=== PATIENT | male | born 1965 | race Two or more races ===

== ENCOUNTER 2019-02-27 17:29 | Inpatient (IN) | payer SELFPAY ==
[~2019-02-27] VITALS: Ht 170.2 cm; Wt 90.2 kg
--- NOTE | ~2019-02-27 | HEMODYNAMI ---
PATIENT:JONE OCHOA MEDICAL RECORD: [id number] : 69 LOCATION:[facility] D213 ADMISSION DATE: 02/27/19 Generatedon:02/28/201915:24 Patient name: JONE OCHOA Patient #: [id number] SSN: [id number] : 1965 Date of study: 02/28/2019 Page: Of Hemodynamic Procedure Report Patient Data Patient Demographics Procedure consent was obtained First Name: JONE Gender: Male Last Name: GABRIELA : 1965 Patient #: [id number] Age: 54 year(s) Race: Other SSN: [id number] Ethnicity: or Additional ID: [id number] Contact details [address]: [address] [place] [address] State: [place] City: [place] Zip code: [address] Past Medical History Allergies: No known allergies Admission Admission Data Admission Date: 02/27/2019 Admission Time: 20:04 Room #: D2133 Lab Results Lab Result Date: 02/28/2019 Lab Result Time: 0:00 Biochemistry Name Units Result Min Max BUN mg/dl 16 --(---*)-- 7 18 Creatinine mg/dl 1 --(--*-)-- 0.6 1.3 eGFR ml/min 82.59836 -*(----)-- 90 120 NONAFRICAN CBC Name Units Result Min Max Hematocrit % 43.4 --(*---)-- 42 54 Hemoglobin g/dl 15.5 --(-*--)-- 13.5 17.5 Procedure Procedure Types Cath Procedure Diagnostic Procedure C [facility] w/Coronaries Sedation Charges Moderate Sedation up to 15 minutes Procedure Description Procedure Date Procedure Date: 02/28/2019 Procedure Start Time: 14:50 Procedure End Time: 15:22 Procedure Staff Name Function Janusz Ramirez MD Performing Physician Elizabeth Galo RT Monitor Latrice Reynolds RT Scrub Yolanda Alarcon RN Nurse Procedure Data Cath Procedure Fluoroscopy Diagnostic fluoroscopy Total fluoroscopy Time: 6.1 time: 6.1 min min Diagnostic fluoroscopy Total fluoroscopy dose: 614 dose: 614 mGy mGy Contrast Material Contrast Material Type Amount (ml) Isovue 300 65 Entry Location Entry Primary Successful Side Size Upsize Upsize Entry Closure Silva ccessful Closure Location (Fr) 1 (Fr) 2 (Fr) Remarks Device Remarks Radial Right 6 Fr Mechanical artery Short Compression Femoral Right 5 Fr Exoseal artery Estimated blood loss: 5 ml Diagnostic catheters Device Type Used For End Catheter Placement DIAGNOSTIC Auberry 110cm 5 Procedure Fr catheter ([id number]) MULTIPACK JL 4.0 5Fr Procedure catheter MULTIPACK 3DRC 5Fr Procedure catheter MULTIPACK Pigtail 5 Fr Procedure catheter Procedure Complications No complications Procedure Medications Medication Administration Route Dosage Oxygen etCO2 Nasal cannula 2 l/min Lidocaine 2% added to field 20 Heparin Flush Bag added to field 2 bags (1000units/500ml NS) 0.9% NaCl I.V. 100 ml/hr Versed I.V. 2 mg Fentanyl I.V. 100 mcg Radial Cocktail added to field 1 syringe (Verapamil 2mg/Nitro 400mcg/Heparin 1500units) Versed I.V. 2 mg Fentanyl I.V. 100 mcg Solumedrol I.V. 125 mg Hemodynamics Rest HGB: 15.5 (g/dl) Heart Rate: 67 (bpm) Pressure Samples Time Site Value (mmHg) Purpose Heart Use Rate(bpm) 15:09 LV 86/0,4 Snapshot 69 15:09 AO 117/36(61) Pullback 58 Gradients Valve Time Site Site 2 Mean SEP/DFP Peak To Heart Use 1 (mmHg) (sec/min) Peak Rate (mmHg) (bpm) Aortic 15:09 LV AO 36 24 58 117/36(61) Calculations Valve P-P Mean Valve Index Valve Source Name Gradient Area Flow (cm2) Aortic 36 36 Snapshots Pre Cath Intra NCS Post Cath Vital Signs Time Heart Resp SPO2 etCO2 NIBP Rhythm Pain Sedation Rate (ipm) (%) (mmHg) (mmHg) Status Level (bpm) 14:27:48 61 16 96 0 125/61(78) NSR 0 (11) 10(A) , No pain 14:32:02 70 16 94 27 108/62(83) NSR 0 (11) 10(A) , No pain 14:36:12 55 15 94 26.2 124/54(79) NSR 0 (11) 10(A) , No pain 14:40:26 60 14 96 30.7 109/59(76) NSR 0 (11) 10(A) , No pain 14:44:34 59 10 96 30 110/59(76) NSR 0 (11) 10(A) , No pain 14:48:44 59 11 95 34.5 109/54(76) NSR 0 (11) 10(A) , No pain 14:52:56 57 19 97 0 99/48(80) NSR 0 (11) 10(A) , No pain 14:57:02 61 10 94 43.5 95/53(72) NSR 0 (11) 9(A) , No pain 15:01:07 69 17 95 35.2 100/52(66) NSR 0 (11) 9(A) , No pain 15:05:11 72 10 94 44.2 105/59(81) NSR 0 (11) 9(A) , No pain 15:09:17 67 15 93 38.3 105/58(85) NSR 0 (11) 10(A) , No pain 15:13:25 68 10 94 37.5 102/54(81) NSR 0 (11) 10(A) , No pain Medications Time Medication Route Dose Verified Delivered Reason Notes Effectiveness by by 14:32:43 Oxygen etCO2 2 l/min Janusz Guerrero used for Nasal St Sohail Alarcon RN procedure cannula 14:32:49 Lidocaine 2% added 20ml Janusz Boudreaux for local to vial [facility] anesthetic field MD PANTOJA 14:32:57 Heparin Flush added 2 bags Janusz Boudreaux used for Bag to [facility] procedure (1000units/500ml field MD PANTOJA NS) 14:33:05 0.9% NaCl I.V. 100 Janusz Guerrero Per ml/hr St Sohail Alarcon RN physician 14:49:49 Versed I.V. 2 mg Januzs Guerrero for sedation St Sohail Alarcon RN, MD 14:49:58 Fentanyl I.V. 100 mcg Janusz Guerrero for sedation St Sohail Alarcon RN, MD 14:52:34 Radial Cocktail added 1 Janusz Boudreaux for (Verapamil to syringe [facility] vasodilation 2mg/Nitro field MD PANTOJA 400mcg/Heparin 1500units) 15:04:43 Versed I.V. 2 mg Janusz Boudreaux for sedation St Sohail Ramirez MD, MD 15:04:48 Fentanyl I.V. 100 mcg Janusz Boudreaux for sedation St Sohail Ramirez MD, MD 15:09:51 Solumedrol I.V. 125 mg Janusz Guerrero Per St Sohail Alarcon RN physician Procedure Log Time Note 13:47:43 Informed consent obtained and on chart 13:48:22 Procedure Status Urgent Heart Cath (IP). 13:48:28 Plan of Care:Hemodynamics will remain stable., Cardiac rhythm will remain stable., Comfort level will be maintained., Respiratory function will remain adequate., Patient/ family verbilizes understanding of procedure., Procedure tolerated without complication., Recovers from procedure without complications.. 13:48:30 Time tracking: Regular hours (M-F 7:00 - 5:00) 13:49:49 H&P Date Dictated: 02/27/2019 Within 30 days and on chart.. 13:50:03 Patient allergic to No known allergies 13:51:00 Lab Result : BUN 16 mg/dl 13:51:00 Lab Result : Creatinine 1 mg/dl 13:51:00 Lab Result : eGFR NONAFRICAN 82.11537 ml/min 13:51:00 Lab Result : Hemoglobin 15.5 g/dl 13:51:00 Lab Result : Hematocrit 43.4 % 13:52:50 Stress Test: no; N/A ? 13:58:36 Risk of Mortality: .1 13:58:38 Risk of blood transfusion: .1 13:58:40 Risk of GINA: .1 14:04:03 Elizabeth Galo RT(R) sent for patient. Start room use. 14:26:39 Patient received from Med II to CCL 1 Alert and oriented. Tansferred to table in Supine position. 14:26:40 Warm blankets applied, and alok hugger turned on for patient comfort. 14:26:40 Correct patient and procedure confirmed by team. 14:26:41 ECG and BP/O2 sat monitors applied to patient. 14:26:41 Vital chart was started 14:26:42 Baseline sample Acquired. 14:26:47 Rhythm: sinus rhythm 14:26:48 Full Disclosure recording started 14::49 Pre-procedure instructions explained to patient. 14:26:49 Pre-op teaching completed and patient verbalized understanding. 14:26:51 Family in patients room. 14:26:52 Patient NPO since Midnight. 14:26:54 Is the patient allergic to Iodine/contrast media? No. 14:26:56 Is patient on blood thinner?No 14:26:59 Patient diabetic? Yes. 14:27:02 If diabetic: On Metformin? Unknown 14:27:21 Previous problem with sedation/anesthesia? No ? 14:27:23 Snore? Yes 14:27:24 Sleep apnea? No 14:27:26 Deviated septum? No 14:27:26 Opens mouth fully? Yes 14:27:29 Sticks out tongue? Yes 14:27:30 Airway obstruction? No ? 14:27:42 Pre procedure: right dorsailis pedis pulse 1+ Palpable, but thready & weak; easily obliterated 14:27:44 Modified Hank's test Ulnar < 7 seconds 14:27:47 Patient pain scale 0/10 ?. 14:28:06 IV patent on arrival in right antecubital with 0.9% NaCl at [facility]. 14:28:10 Lab results completed and on chart. 14:28:16 Right Radial & Right Groin area was prepped with chlora-prep and draped in sterile fashion 14:28:17 Alarms reviewed by R. N. 14:28:17 Sharps counted by scrub and verified by R.N. 14:28:19 Use device set Radial Dx or PCI 14:28:20 ACIST Syringe (44971) opened to sterile field. 14:28:21 Bag Decanter () opened to sterile field. 14:28:22 ACIST Hand Control (32294) opened to sterile field. 14:28:22 ACIST Manifold (16186) opened to sterile field. 14:28:24 Tegaderm 4 x 4 (1626W) opened to sterile field. 14:28:25 Medline Cath Pack ([id number]) opened to sterile field. 14:28:26 MBrace Wrist Support ([id number]) opened to sterile field. 14:28:27 EMERALD Guide Wire (335-293) opened to sterile field. 14:28:28 SHEATH 6FR RAIN ([id number]) opened to sterile field. 14:32:43 Oxygen 2 l/min etCO2 Nasal cannula was administered by Yolanda Alarcon RN; used for procedure; Verbal order read back and verified. 14:32:49 Lidocaine 2% 20ml vial added to field was administered by Janusz Ramirez MD; for local anesthetic; Verbal order read back and verified. 14:32:57 Heparin Flush Bag (1000units/500ml NS) 2 bags added to field was administered by Janusz Ramirez MD; used for procedure; Verbal order read back and verified. 14:33:05 0.9% NaCl 100 ml/hr I.V. was administered by Yolanda Alarcon RN; Per physician; Verbal order read back and verified. 14:36:46 Zero performed for pressure channel P1 14:48:07 --------ALL STOP TIME OUT------ 14:48:07 Final Timeout: patient, procedure, and site verified with staff and physician. All members of the team are in agreement. 14:48:09 Right Radial & Right Groin site verified by team. 14:48:11 Fire Safety Assessment: A--An alcohol-based skin anteseptic being used preoperatively., C--Open oxygen or nitrous oxide is being used., D--An ESU, laser, or fiber-optic light is being used. 14:48:14 Physical assessment completed. ASA score P 2 - A patient with mild systemic disease as per Janusz Ramirez MD. 14:48:17 2) 60-89 Mildly reduced kidney function, and other findings (as for stage 1) point to kidney disease. 14:48:20 Maximum allowable contrast dose (3.7 X eGFR X 0.75)250 ml. 14:48:23 Sedation plan: IV Moderate Sedation Medication:Versed, Fentanyl 14:49:49 Versed 2 mg I.V. was administered by Yolanda Alarcon RN; for sedation; Verbal order read back and verified. 14:49:58 Fentanyl 100 mcg I.V. was administered by Yolanda Alarcon RN; for sedation; Verbal order read back and verified. 14:50:12 Procedure started. 14:50:25 Local anesthetic to right radial artery with Lidocaine 2% by Janusz Ramirez MD.INITIAL ACCESS ONLY 14:52:34 Radial Cocktail (Verapamil 2mg/Nitro 400mcg/Heparin 1500units) 1 syringe added to field was administered by Janusz Ramirez MD; for vasodilation; Verbal order read back and verified. 14:54:21 A 6 Fr Short sheath was inserted into the Right Radial artery 14:54:40 A DIAGNOSTIC Auberry 110cm 5 Fr catheter ([id number]) was advanced over the wire and used for Procedure. 14:56:48 GLIDE WIRE ANGLE 260cm ([id number]) opened to sterile field. 14:57:06 GLIDE WIRE ANGLED ADVNACED . 14:58:35 UNABLE TO ADVANCE WIRE AROUND AORTA. WILL PROCEED TO THE GROIN.. 14:59:00 Local anesthetic to right femoral artery with Lidocaine 2% by Janusz Ramirez MD.ADDITIONAL ACCESS 14:59:13 SHEATH 5FR [place] (ZGN528) opened to sterile field. 14:59:29 Use device set Multipack Set 14:59:30 DIAGNOSTIC Multipack 5Fr catheter set ([id number]) opened to sterile field. 15:00:32 A 5 Fr sheath was inserted into the Right Femoral artery 15:00:39 A MULTIPACK JL 4.0 5Fr catheter was advanced over the wire and used for Procedure. 15:01:39 LCA angiography performed. 15:01:41 Catheter removed. 15:01:46 A MULTIPACK 3DRC 5Fr catheter was advanced over the wire and used for Procedure. 15:03:59 GLIDE WIRE ANGLE 260cm ([id number]) opened to sterile field. 15:04:09 GLIDE WIRE USED TO ADNAVCE 3DRC. 15:04:43 Versed 2 mg I.V. was administered by Janusz Ramirez MD; for sedation; Verbal order read back and verified. 15:04:48 Fentanyl 100 mcg I.V. was administered by Janusz Ramirez MD; for sedation; Verbal order read back and verified. 15:07:07 RCA angiography performed. 15:07:10 Catheter exchanged over wire. 15:07:27 A MULTIPACK Pigtail 5 Fr catheter was advanced over the wire and used for Procedure. 15:07:38 LV gram done using CHERYL 15::41 Injector settings: Ml/sec: 10, Volume: 20, 15:09:09 LV hemodynamics recorded. 15:09:22 EF : 55 % 15:09:23 Catheter removed. 15:09:44 EXOSEAL 5Fr (EX500) opened to sterile field. 15:09:46 ZEPHYR REGULAR TR BAND (633557) opened to sterile field. 15:09:51 Solumedrol 125 mg I.V. was administered by Yolanda Alarcon RN; Per physician; Verbal order read back and verified. 15:10:04 Sheath removed intact; hemostasis achieved with Exoseal to the Right Femoral artery. 15:10:23 Procedure ended.(Physican Out) 15:10:45 Sheath removed intact; hemostasis achieved with Mechanical Compression to the Right Radial artery. 15:11:05 Fluoroscopy time 06.10 minutes. 15:11:10 Fluoroscopy dose: 614 mGy 15:11:10 Flurop Dose total: 614 15:11: Dose Area Product 09528 mGy/cm. 15:11:27 Contrast amount:Isovue 300 65ml. 15:11:30 Maximum allowable dose exceeded? No. 15:11:31 Sharps counted by scrub and verified by R.N. 15:11:36 Post-op/insertion site Right Femoral artery dressed using a 4 x 4 and Tegaderm. 15:12:14 Post-procedure physical assessment completed. ASA score P 2 - A patient with mild systemic disease as per Janusz Ramirez MD. 15:12:17 Post procedure rhythm: sinus rhythm 15:12:20 Estimated blood loss: 5 ml 15:12:21 Post procedure instruction explained to patient.Patient verbalizes understanding. 15:12:22 Patient needs reinforcement of post procedure teaching. 15:12:42 Procedure type changed to Cath procedure, Diagnostic procedure, LHC, [facility] w/Coronaries, Sedation Charges, Moderate Sedation up to 15 minutes 15:13:07 Procedure and supply charges have been captured, reviewed, submitted and are correct. 15:13:12 Procedure Complication : No complications 15:14:14 Vital chart was stopped 15:14:16 [facility] Findings: mild to moderate CAD (<70%) 15:14:17 Operative report dictated upon procedure completion. 15:14:17 See physician's report for complete and final results. 15:22:45 Catherine band inflated with 9cc of air. 15:22:50 Report given to [facility]. 15:22:52 Patient transfered to [facility] with Bed. 15:22:54 Procedure ended. 15:22:54 Full Disclosure recording stopped 15:23:00 End room use (Document Last) 15:23:16 End room use (Document Last) 15:23:46 End room use (Document Last) Device Usage Item Name Manufacture Quantity Catalog Hospital Part Current Minima l Lot# / Number Charge Number Stock Stock Serial# Code ACGEORGE Acist 1 99000 944424 355767 155874 20 Syringe Medical (87993) Systems Inc Bag Microtek 1 2001S 948158 65872 433698 5 Decanter Medical Inc. () ACIST Hand Acist 1 99277 610482 404270 338475 5 Control Medical (19576) Systems Inc ACIST Acist 1 91417 150168 080050 040531 5 Manifold Medical (25765) Systems Inc Tegaderm 4 3M 1 1626W 454388 926776 283976 5 x 4 (1626W) Medline Medline 1 [id number] 429387 72659 138429 5 Cath Pack ([id number]) MBrace Advanced 1 140-0250-00 776804 39735 560312 5 Wrist Vascular Support Dynamics ([id number]) EMERALD Cardinal 1 502-455 654679 144409 836748 5 Guide Wire Health (502-455) SHEATH 6FR Cardinal 1 5564235 248346 2426582 171582 5 [facility] (5729076) DIAGNOSTIC Terumo 1 40-8443 345676 643680 875129 5 Auberry 110cm 5 Fr catheter (384761) GLIDE WIRE Terumo 2 DF8192 767435 649759 266217 5 ANGLE 260cm (NJ1229) SHEATH 5FR Terumo 1 WFN826 014296 923338 383263 5 [place] (VDM734) DIAGNOSTIC Cardinal 1 JN5071 059085 63800 263744 30 Multipack Health 5Fr catheter set (NQ1786) MULTIPACK Cardinal 1 919965 5 JL 4.0 5Fr Health catheter MULTIPACK Cardinal 1 755692 5 3DRC 5Fr Health catheter MULTIPACK Cardinal 1 488465 5 Pigtail 5 Health Fr catheter EXOSEAL 5Fr Cardinal 1 EX500 725996 596224 572210 10 (EX500) Health ZEPHYR Cardinal 1 254296 204824 7213720 744312 5 REGULAR TR Health BAND (495609) Signature Audit [place] Stage Time Signature Unsigned Intra-Procedure 02/28/2019 Elizabeth Galo 3:23:16 PM RT(R) Intra-Procedure 02/28/2019 Yolanda Alarcon RN 3:23:46 PM Intra-Procedure 02/28/2019 Janusz Garcia 3:24:11 PM Sohail PANTOJA [facility] [address] [place] [address]
[2019-02-27 17:45] VITALS: Ht 170.2 cm; Wt 90.2 kg
[2019-02-27] MEDS ORDERED: PRAVACHOL40 MG PO (17:49)
[2019-02-27] MEDS ORDERED: LOPRESSOR25 MG PO (17:49)
[2019-02-27] MEDS ORDERED: ASPIRIN81 MG PO (17:49)
[2019-02-27 18:11] LABS: BASOPHILS 0.4 % (0-2); EOSINOPHILS 0.1 % (0-7); HEMATOCRIT 43.4 % (42.0-54.0); HEMOGLOBIN 15.5 g/dL (13.5-17.5); IMMATURE GRANULOCYTES 0.1 % (0-5); LYMPHOCYTES 24.9 % (15-50); MCH 31.2 pg (26.0-34.0); MCHC 35.7 g/dL (31.0-37.0); MCV 87.3 fL (80.0-100.0); MEAN PLATELET VOLUME 10.4 fL (7.4-10.4); MONOCYTES 6.8 % (2-11); NEUTROPHILS 67.7 % (40-80); PLATELET COUNT 238 10x3/uL (130-400); RBC 4.97 10x6/uL (4.20-6.10); RDW 13.2 % (11.5-14.5); WBC 7.3 10x3/uL (4.8-10.8)
[2019-02-27 18:41] LABS: APTT 30.4 SECONDS (22.8-39.4); CALC OSMOLALITY 279 mosm/kg (275-300); CALCIUM 9.2 mg/dL (8.5-10.1); CARBON DIOXIDE 24.5 mmol/L (21.0-32.0); CHLORIDE - SERUM 105 mmol/L (98-107); GLUCOSE 103 mg/dL (74-106); INR 1.01 (0.85-1.17); POTASSIUM - SERUM 4.1 mmol/L (3.5-5.1); PROTIME 13.2 SECONDS (11.6-15.0); SODIUM 140 mmol/L (136-145); UREA NITROGEN 14 mg/dL (7-18); eGFR NON AFRICAN AMERICAN 83 mL/min (90-120)
[2019-02-27 18:57] LABS: ALBUMIN 3.9 g/dL (3.4-5.0); ALKALINE PHOSPHATASE 81 U/L (46-116); ALT (SGPT) 108 U/L (10-68); BILIRUBIN - TOTAL 0.36 mg/dL (0.2-1.3); CKMB 0.9 U/L (0.0-3.6); CREATINE KINASE 79 UL (21-232); PROTEIN - SERUM 8.1 g/dL (6.4-8.2); TROPONIN-I < 0.017 ng/mL (0.000-0.060)
--- NOTE | 2019-02-27 22:00 | NUR ---
PT ARRIVED TO FLOOR VIA WHEELCHAIR A/O X4. VSS. PT SATATES THAT HE'S HAD BLOOD IN STOOL AND COMPLAINS OF PAIN IN ABDOMEN. PT TELLS ME HE INGESTED WATER LACED WITH METH 2 WEEKS AND WAS UNAWARE. CECELIA MCDANIEL PAGED. PT PLACED ON TELEMETRY RUNNING AT 50 SINUS MADHURI. NO S/S OF DISTRESS AT THIS TIME. PT DENIES ANY PAIN OR FURTHER NEEDS. BED LOW CALL LIGHT WITHIN REACH. WILL CONTINUE TO MONITOR.
[2019-02-28 01:44] LABS: CKMB 0.8 U/L (0.0-3.6); CREATINE KINASE 93 UL (21-232); TROPONIN-I < 0.017 ng/mL (0.000-0.060)
[2019-02-28 04:30] VITALS: BP 97/55
[2019-02-28 05:31] LABS: BASOPHILS 0.3 % (0-2); EOSINOPHILS 1.1 % (0-7); HEMATOCRIT 40.9 % (42.0-54.0); HEMOGLOBIN 14.3 g/dL (13.5-17.5); IMMATURE GRANULOCYTES 0.3 % (0-5); LYMPHOCYTES 33.3 % (15-50); MCH 30.8 pg (26.0-34.0); MCV 88.1 fL (80.0-100.0); MEAN PLATELET VOLUME 10.8 fL (7.4-10.4); MONOCYTES 10.7 % (2-11); NEUTROPHILS 54.3 % (40-80); PLATELET COUNT 225 10x3/uL (130-400); RBC 4.64 10x6/uL (4.20-6.10); RDW 13.4 % (11.5-14.5); WBC 6.2 10x3/uL (4.8-10.8)
[2019-02-28 05:58] LABS: AMYLASE - SERUM 74 U/L (25-115); CALC OSMOLALITY 279 mosm/kg (275-300); CALCIUM 8.6 mg/dL (8.5-10.1); CARBON DIOXIDE 28.2 mmol/L (21.0-32.0); CHLORIDE - SERUM 104 mmol/L (98-107); CKMB 0.6 U/L (0.0-3.6); CREATINE KINASE 58 UL (21-232); GLUCOSE 100 mg/dL (74-106); LIPASE 302 U/L (73-393); PHOSPHOROUS 4.3 mg/dL (2.5-4.9); POTASSIUM - SERUM 4.1 mmol/L (3.5-5.1); SODIUM 140 mmol/L (136-145); TROPONIN-I < 0.017 ng/mL (0.000-0.060); UREA NITROGEN 16 mg/dL (7-18); eGFR NON AFRICAN AMERICAN 83 mL/min (90-120)
--- NOTE | 2019-02-28 06:22 | NUR ---
I have reviewed this patient and I concur with the Shift Assessment completed by the Licensed Practical Nurse today this shift.
[2019-02-28 07:44] LABS: UDS - AMPHET NEGATIVE QUAL (NEGATIVE); UDS - BARB NEGATIVE QUAL (NEGATIVE); UDS - BENZO NEGATIVE QUAL (NEGATIVE); UDS - COCAINE NEGATIVE QUAL (NEGATIVE); UDS - OPIATE NEGATIVE QUAL (NEGATIVE); UDS - PCP NEGATIVE QUAL (NEGATIVE); UDS - THC NEGATIVE QUAL (NEGATIVE)
[2019-02-28 08:32] LABS: APPEARANCE HAZY (CLEAR); BILIRUBIN NEGATIVE (NEGATIVE); COLOR YELLOW (YELLOW); GLUCOSE NEGATIVE (NEGATIVE); KETONE NEGATIVE (NEGATIVE); NITRITE NEGATIVE (NEGATIVE); PROTEIN NEGATIVE (NEGATIVE); SPECIFIC GRAVITY 1.025 (1.005-1.020); UROBILINOGEN NORMAL (NORMAL)
[2019-02-28 08:33] LABS: BACTERIA FEW /hpf (NEGATIVE); EPITHELIAL CELLS OCC /hpf (0-5); MUCUS >1+ /lpf (NONE SEEN); RED CELLS - URINE RARE /hpf (0-5); WHITE CELLS - URINE OCC /hpf (NEGATIVE)
[2019-02-28 09:17] LABS: CHOL - HDL RATIO 4.7 ratio (2.3-4.9); LDL-HDL RATIO 2.4 ratio (1.5-3.5)
[2019-02-28 10:55] VITALS: BP 120/60
[2019-02-28 12:36] LABS: CKMB 0.5 U/L (0.0-3.6); CREATINE KINASE 65 UL (21-232); TROPONIN-I < 0.017 ng/mL (0.000-0.060)
[2019-02-28 14:09] VITALS: BP 116/66
--- NOTE | 2019-02-28 15:41 | NUR ---
PT TO ROOM FROM MOVING CONSULTANT RECOVERY. DRESSING TO RIGHT GROIN IS CLEAN AND DRY. RIGHT WRIST WITH PRESSURE BRACE IN PLACE. PT IS RESTING QUIETLY AT PRESENT.
[2019-02-28 17:24] VITALS: BP 101/58
--- NOTE | 2019-02-28 19:10 | NUR ---
BEDSIDE REPORT RECEIVED FROM DAY SHIFT, PT CARE ASSUMED. INTRODUCED SELF AND WROTE NAME ON BOARD. PT LYING IN BED, VISITING WITH FAMILY AT BEDSIDE, AAOX4. REQUESTING JELLO AND WATER, PROVIDED. DENIES PAIN OR ANY OTHER NEEDS AT THIS TIME. BED IN LOWEST POSITION, SR X2, CALL LIGHT WITHIN REACH. WILL CONTINUE TO MONITOR.
[2019-02-28 20:00] VITALS: BP 132/76
[2019-03-01] VITALS: BP 116/63
[2019-03-01 04:00] VITALS: BP 104/65
[2019-03-01 06:00] LABS: BASOPHILS 0 % (0-2); EOSINOPHILS 0 % (0-7); HEMATOCRIT 39.3 % (42.0-54.0); IMMATURE GRANULOCYTES 0.3 % (0-5); LYMPHOCYTES 14.3 % (15-50); MCHC 35.6 g/dL (31.0-37.0); MCV 86.9 fL (80.0-100.0); MEAN PLATELET VOLUME 10.7 fL (7.4-10.4); MONOCYTES 4.3 % (2-11); NEUTROPHILS 81.1 % (40-80); PLATELET COUNT 246 10x3/uL (130-400); RBC 4.52 10x6/uL (4.20-6.10); RDW 13.2 % (11.5-14.5); WBC 6.5 10x3/uL (4.8-10.8)
[2019-03-01 06:20] LABS: CALC OSMOLALITY 278 mosm/kg (275-300); CALCIUM 8.3 mg/dL (8.5-10.1); CHLORIDE - SERUM 102 mmol/L (98-107); CREATININE - SERUM 0.9 mg/dL (0.6-1.3); GLUCOSE 146 mg/dL (74-106); MAGNESIUM - SERUM 1.8 mg/dL (1.8-2.4); PHOSPHOROUS 3.7 mg/dL (2.5-4.9); POTASSIUM - SERUM 4.3 mmol/L (3.5-5.1); SODIUM 137 mmol/L (136-145); UREA NITROGEN 18 mg/dL (7-18); eGFR NON AFRICAN AMERICAN > 90 mL/min (90-120)
--- NOTE | 2019-03-01 08:49 | CN ---
PATIENT NAME:GIANCARLO OCHOA MEDICAL RECORD: [id number] : 69 LOCATION:[facility] D.2133 ADMIT DATE: 02/28/19 ACCOUNT: [id number] CONSULTING PHYSICIAN: DACIA OJEDA MD REFERRING PHYSICIAN: DACIA MCBRIDE MD DATE OF CONSULTATION: 02/28/2019 HISTORY OF PRESENT ILLNESS: Giancarlo Ochoa is a 54-year-old gentleman with no known history of coronary artery disease, has a strong family history of coronary artery disease as well as hypertension, hyperlipidemia, admitted with chest pain over the past 2-3 days, eventually had rapidly progressing rest symptomology yesterday, multiple risk factors including hypertension, hyperlipidemia, diabetes mellitus, smoking, has noted in retrospect increasing effort intolerance over the past perhaps a month. We are asked to see him concerning his cardiovascular status. PAST MEDICAL HISTORY: Includes: 1. History of hypertension. 2. Hyperlipidemia. 3. Diabetes mellitus. MEDICATIONS: Include aspirin 81 mg p.o. daily, pravastatin 40 mg p.o. every day, metoprolol 25 p.o. b.i.d. ALLERGIES: None known. SOCIAL HISTORY: [employer] manual labor laying bricks. Smokes as described above. No illicit drug use. Has had issues with compliance in the past by his report due to a change in job site, etc. REVIEW OF SYSTEMS: The patient reports easy bruising but reports no swollen glands. The patient reports no fever, no night sweats, no significant weight gain, no significant weight loss. No significant exercise tolerance. The patient reports no dry eyes, no irritation, no vision change. Patient reports no difficulty hearing and no ear pain. Patient reports no frequent nose bleeds or nose and sinus problems. Patient reports on arm pain on exertion. No shortness of breath while lying down. No history of heart murmur. Patient reports no cough, no wheezing or coughing up blood. Patient reports no abdominal pain, no vomiting. Normal appetite. No diarrhea and not vomiting blood. No nausea and no constipation. Patient reports no incontinence. No difficulty urinating. No hematuria. No increased frequency. Patient reports no muscle aches. No weakness, no arthralgias, no back pain. No swelling of the extremities. Patient reports no abnormal mole, no jaundice, no rashes. Reports no loss of consciousness. No weakness and no numbness. No seizures, dizziness, or headaches. The patient reports no depression, no sleep disturbance, feeling safe in a relationship and no alcohol abuse. Patient reports on fatigue. Reports no runny nose or sinus pressure. No itching, no hives, and no frequent sneezing. PHYSICAL EXAMINATION: GENERAL: A well-developed, well-nourished gentleman, in no acute distress, appears stated age. VITAL SIGNS: Blood pressure 128/59, pulse 67 and regular. HEENT: Normocephalic, atraumatic. NECK: No JVD or bruit. CONSULT REPORT [id number] OCHOAGIANCARLO HEART: Regular, II/ systolic ejection murmur. LUNGS: Good air excursion. ABDOMEN: Soft, nontender. EXTREMITIES: Pulses 2+. No edema. DIAGNOSTIC DATA: EKG shows voltage for LVH. IMPRESSION: Acute coronary syndrome, multiple risk factors. PLAN: For angiography, intervention based on above. TRANSINT:[id number] Voice Confirmation ID: [id number] DOCUMENT ID: [id number] DACIA OJEDA MD at 0849 CC: [id number] DICTATION DATE: 02/28/19 0833 SHEARER SCREEN MEASURER AND TRIMMER: 02/28/19 1206 ADM IN [facility] [address] [place] [address]
--- NOTE | 2019-03-01 08:49 | OP ---
PATIENT NAME: JONE OCHOA MEDICAL RECORD: [id number] :69 LOCATION:D.M2 D.2133 ADMISSION DATE:02/28/19 SURGEON: DACIA OJEDA MD DATE OF OPERATION: 02/28/2019 PROCEDURE: Left heart catheterization, selective coronary angiography, right femoral artery approach. CATHETERS: A 5-Yoruba sheath, 5/4 left and right Doug, 5/4 pig. The procedure was well tolerated. The patient was returned to [place]. Sheath was removed. ExoSeal device placed. FINDINGS: Left ventriculography in 30-degree CURRY view: Normal wall motion and normal systolic function. CORONARY ANATOMY: LEFT MAIN: Left main is free of disease. LAD: Free of disease in the diagonal system. CIRCUMFLEX: Free of disease in the marginal system. RIGHT CORONARY ARTERY: Codominant system, free of disease. IMPRESSION: Normal LV systolic function. Normal coronary anatomy. Noncardiac chest pain. TRANSINT:[id number] Voice Confirmation ID: [id number] DOCUMENT ID: [id number] DACIA OJEDA MD at 0849 CC: [id number] DICTATION DATE: 02/28/19 1521 SURFACE MINER: 02/28/19 2356 ADM IN [facility] [address] [place] [address]
[2019-03-01 09:50] VITALS: BP 130/72
--- NOTE | 2019-03-01 11:34 | NUR ---
I STATED TO PT HE IS GOING TO BE DC'D TODAY. PT THEN ASKED ABOUT IF THEY ARE GOING TO SEND HIM SOMETHIGN HOME FOR HIS CHEST PAIN. I AKED PT "ARE YOU HAVING CHEST PAIN NOW?" PT STATES "YES. I'VE BEEN HAVING IT BUT DIDN'T WANT TO SAY ANYTHING." I ASKED "WHERE IS IT AT?" HE STATES "GOING ACROSS AND IT'S A TIGTH SQUEEZING." I ASKED "WHAT IT THE PAIN LEVEL OF 1 TO 10?" PT STATES "AN 8. BUT I ALSO GET A HEADACHE WITH THE CHEST PAIN AND THAT LEVEL IS A 6." I VERBALIZED UNDERSTANDING AND STATED I WILL CALL CARDIOLOGY. CARDIOLOGY PAGED.
--- NOTE | 2019-03-01 11:38 | NUR ---
PT IS 67 NORMAL SINUS RHYTHM ON THE MONITOR.
--- NOTE | 2019-03-01 11:57 | NUR ---
PT STATES THE NITRO HAS HELPED A LITTLE HE SAID HIS VISION WAS BLURRY BUT NOW IT IS NOT AND HIS HEADACHE HAD EASED UP BUT HE IS STILL HAVING CHEST PAIN AND THAT HAS NOT CHANGED. ANOTHER NITRO GIVEN. WILL CONTINUE TO MONITOR.
--- NOTE | 2019-03-01 12:08 | NUR ---
PT STATED TO IT SERVICE TECHNICIAN OSWALDO HE NEEDS HIS NURSE. PT LEGS SHAKING ANS STATES HE IS COLD. PT NORMAL SINUS RHYTHM ON MONITOR. VS STABLE BP 143/79 HR 75 TEMP. 98.9. PT STATES HIS CHEST PAIN AND VISION CHANGES HAS RESOLVED. BUT STILL HAS A SLIGHT HEADACHE. PT STATES HE CAN NOT GO HOME LIKE THIS SOMETHING IS WRONG. WILL CONTINUE TO MONITOR. STILL WAIITNG FOR CARDIOLOGY TO CALL. PT HAS HAD NO EKG OR VS CHANGES. HEAT IN ROOM TURNED UP AND WARM BLANKET PLACED ON PT.
--- NOTE | 2019-03-01 12:26 | NUR ---
CORINNE MCCLELLAN AND [facility] BOTH PAGED.
--- NOTE | 2019-03-01 12:32 | NUR ---
SPOKE WITH [facility] ABOUT WHAT IS GOING WITH PT AND HE STATES DO NOT GIVE ANY MORE NITRO AND TO GIVE 30 TORADOL ONE TIME. SPOKE WITH CORINNE MCCLELLAN AND SHE STATES HER AND DR. MCBRIDE WILL ROUND ON PT AND SEE WHAT IS GOING ON. I VERBALIZED UNDERSTANDING. CORINNE MCCLELLAN ALSO STATES SHE WILL GO AHEAD AND SEND SCRIPTS OF MEDS HE TAKES AT HOME TO PHARMACY.
[2019-03-01] MEDS ORDERED: PRAVACHOL40 MG PO (12:34)
[2019-03-01] MEDS ORDERED: LOPRESSOR25 MG PO (12:34)
--- NOTE | 2019-03-01 13:13 | NUR ---
DR. MCBRIDE LOOKED AT PT'S CHART AND SPOKE WITH PT IN THE ROOM AND STATED TO PT HE HAS REAL BAD ACID REFLUX AND HE STATED TO ME DO NOT GIVE TORADOL.
--- NOTE | 2019-03-01 13:16 | NUR ---
DR. MCBRIDE SPOKE ON THE PHONE WITH UMANG COHN AND EXPLAINED TO HER WHAT'S GOING ON.
[2019-03-01] MEDS ORDERED: OMEPRAZOLE40 MG PO (13:23)
--- NOTE | 2019-03-01 15:45 | NUR ---
DC'D IV WITH TIP INTACT. COVERED WITH 2X2 GAUZE AND TAPE. DISCHARGE INSTRUCTIONS REVIEWED WITH PT AND FAMILY. VERBAL AND WRITTEN ACKNOWLEDGEMENT RETURNED. LEFT UNIT WITH FAMILY BY AMBULATION.
--- NOTE | 2019-03-01 17:41 | MORECARE ---
CASE MANAGEMENT DISCHARGE SUMMARY PATIENT: JONE OCHOA UNIT: [id number] ADM DATE: 02/28/19 AGE: 54 : 69 SEX: M ROOM/BED: D.2133 AUTHOR: MARYDOC PHYSICIAN: REFERRING PHYSICIAN: DACIA MCBRIDE MD DATE OF SERVICE: 03/01/19 Discharge Plan Patient Name: JONE OCHOA Facility: [facility]:[place] : 1965 Planned Disposition: Home Anticipated Discharge Date: 03/01/19 Discharge Date: 03/01/2019 Expected LOS: 1 Initial Reviewer: SHERI Initial Review Date: 03/01/2019 Generated: 03/01/19 6:40 pm Comments DCP- Discharge Planning Updated by [email or web address]: Viet Chahal on 03/01/19 4:[address] Patient Name: JONE OCHOA Admission Status: ER Accout number: [id number] Admission Date: 02-28-2019 : 1965 Admission Diagnosis: Attending: TR Current LOS: 1 Anticipated DC Date: 03-01-2019 Planned Disposition: Home Primary Insurance: UNINSURED DISCOUNT PLAN Discharge Planning Comments: CM MET WITH PT IN ROOM TO DISCUSS DISCHARGE PLANNING AND NEEDS. PT REPORTS LIVING AT HOME INDEPENDENTLY WITH AND FAMILY. PT HAS NO MEDICAL EQUIPMENT AND NO OUTSIDE SERVICES ASSISTING IN THE HOME. CM DISCUSSED AVAILABILITY OF HOME HEALTH, REHAB SERVICES AND MEDICAL EQUIPMENT. PT DENIES DISCHARGE NEEDS, REPORTS HIS FAMILY WILL PICK HIM UP FOR DISCHARGE HOME. PT STATES HE HAD MEDICAID AT ONE TIME AND HIS DAUGHTER IS REAPPLYING FOR HIM. PT DENIES NEEDS. Reservation Manager: Viet Chahal DCPIA - Discharge Planning Initial Assessment Updated by [email or web address]: Viet Chahal on 03/01/19 5:36 pm * Is the patient Alert and Oriented? Yes * How many steps to enter\exit or inside your home? * PCP DR EARL IN [place] * Pharm[facility] * Preadmission Environment Home with Family * ADLs Independent * Equipment None * Other Equipment NO MEDICAL EQUIPMENT PROVIDER PREFERENCE * List name and contact numbers for known caregivers / representatives who currently or will assist patient after discharge: JOSE LUIS MALDONADO, DTR, * Verbal permission to speak to the caregivers and representatives has been obtained from the patient. N/A * Community resources currently utilized None * Please name any agencies selected above. NONE * Additional services required to return to the preadmission environment? No * Can the patient safely return to the preadmission environment? Yes * Has this patient been hospitalized within the prior 30 days at any hospital? No Patient Name: JONE OCHOA Page [id number] at 1741 All edits/amendments must be made on the electronic document DICTATION DATE: 03/01/191739 FINE GRADER: CORBY 03/01/191739 RPT#: [id number] DC DATE:03/01/19 STATUS: DIS IN [facility] [address] [place] [address] END OF REPORT
--- NOTE | 2019-03-02 16:09 | MORECARE ---
CASE MANAGEMENT DISCHARGE SUMMARY PATIENT: JONE OCHOA UNIT: [id number] ADM DATE: 02/28/19 AGE: 54 : 69 SEX: M ROOM/BED: D.2133 AUTHOR: MARYDOC PHYSICIAN: REFERRING PHYSICIAN: DACIA MCBRIDE MD DATE OF SERVICE: 03/02/19 Discharge Plan Patient Name: JONE OCHOA Facility: [facility]:[place] : 1965 Planned Disposition: Home Anticipated Discharge Date: 03/01/19 Discharge Date: 03/01/2019 Expected LOS: 1 Initial Reviewer: SHERI Initial Review Date: 03/01/2019 Generated: 03/02/19 5:08 pm Comments DCP- Discharge Planning Updated by [email or web address]: Viet Chahal on 03/01/19 4:[address] Patient Name: JONE OCHOA Admission Status: ER Accout number: [id number] Admission Date: 02-28-2019 : 1965 Admission Diagnosis: Attending: TR Current LOS: 1 Anticipated DC Date: 03-01-2019 Planned Disposition: Home Primary Insurance: UNINSURED DISCOUNT PLAN Discharge Planning Comments: CM MET WITH PT IN ROOM TO DISCUSS DISCHARGE PLANNING AND NEEDS. PT REPORTS LIVING AT HOME INDEPENDENTLY WITH AND FAMILY. PT HAS NO MEDICAL EQUIPMENT AND NO OUTSIDE SERVICES ASSISTING IN THE HOME. CM DISCUSSED AVAILABILITY OF HOME HEALTH, REHAB SERVICES AND MEDICAL EQUIPMENT. PT DENIES DISCHARGE NEEDS, REPORTS HIS FAMILY WILL PICK HIM UP FOR DISCHARGE HOME. PT STATES HE HAD MEDICAID AT ONE TIME AND HIS DAUGHTER IS REAPPLYING FOR HIM. PT DENIES NEEDS. Manager Social Work: Viet Chahal DCPIA - Discharge Planning Initial Assessment Updated by [email or web address]: Viet Chahal on 03/01/19 5:36 pm * Is the patient Alert and Oriented? Yes * How many steps to enter\exit or inside your home? * PCP DR EARL IN [place] * Pharmacy [facility] IN [facility] * Preadmission Environment Home with Family * ADLs Independent * Equipment None * Other Equipment NO MEDICAL EQUIPMENT PROVIDER PREFERENCE * List name and contact numbers for known caregivers / representatives who currently or will assist patient after discharge: JOSE LUIS MALDONADO, DTR, * Verbal permission to speak to the caregivers and representatives has been obtained from the patient. N/A * Community resources currently utilized None * Please name any agencies selected above. NONE * Additional services required to return to the preadmission environment? No * Can the patient safely return to the preadmission environment? Yes * Has this patient been hospitalized within the prior 30 days at any hospital? No Last DP export: 03/01/19 4:41 p Patient Name: JONE OCHOA Page [phone] at 1609 All edits/amendments must be made on the electronic document DICTATION DATE: 03/02/191607 [employer] G[employer]TER LABORER: CORBY 03/02/191607 RPT#: [id number] DC DATE:03/01/19 STATUS: DIS IN [facility] [address] [place] [address] END OF REPORT
[2019-03-04 21:06] LABS: CHLAMYDIA TRACHOMATIS, NAA Negative (Negative)
== END 2019-03-01 16:12 | disposition home or self-care (01) | DRG 287 ==
LOC: D.ER 17:29 → D.M2 20:04 → OBSVTIME 21:22 → D.M2 02-28 17:02
PROVIDERS: Emergency Medicine; Family Medicine; Internal Medicine Interventional Cardiology; ADMIT Family Medicine; ATTEND Family Medicine
PROC: B2151ZZ Fluoroscopy of Left Heart using Low Osmolar Contrast (ICD-10-PCS; 2019-02-28)
PROC: 4A023N7 Measurement of Cardiac Sampling and Pressure, Left Heart, Percutaneous Approach (ICD-10-PCS; 2019-02-28)
PROC: B2111ZZ Fluoroscopy of Multiple Coronary Arteries using Low Osmolar Contrast (ICD-10-PCS; principal; 2019-02-28 14:04)
DX: R07.89 Other chest pain (principal); E78.5 Hyperlipidemia, unspecified; E11.65 Type 2 diabetes mellitus with hyperglycemia; K21.9 Gastro-esophageal reflux disease without esophagitis; I10 Essential (primary) hypertension